=== PATIENT | female | born 1950 | race Caucasian/White ===

== ENCOUNTER → 2021-02-06 | Outpatient (CLI) | payer MEDICARE, OTHER ==
[~2021-02-06] MED LIST: CLARITIN10 MG PO; COQ-10100 MG PO; CYCLOBENZAPRINE10 MG PO; GABAPENTIN400 MG PO; LANTUS100 UNIT/1 SQ; LASIX TAB 20 MG20 MG PO; NAPROXEN250 MG PO; SYNTHROID100 MCG PO; TRAMADOL HCL100 MG PO; ZESTRIL/PRINIVI10 MG PO
== END ==
LOC: KOH-I 14:30
DX: F17.210 Nicotine dependence, cigarettes, uncomplicated (principal); R91.8 Other nonspecific abnormal finding of lung field
CPT/HCPCS: 71271

== ENCOUNTER → 2021-02-13 | Outpatient (CLI) | payer MEDICARE, OTHER | LOC: MAMO 02-10 11:30 | DX: Z12.31 Encounter for screening mammogram for malignant neoplasm of breast (principal) | CPT/HCPCS: 77063; 77067 ==

== ENCOUNTER → 2021-03-27 | Day surgery (SDC) | payer MEDICARE | END | disposition home or self-care (01) | LOC: OR 07:10 | DX: Z12.11 Encounter for screening for malignant neoplasm of colon (principal); E11.9 Type 2 diabetes mellitus without complications; Z20.822 Contact with and (suspected) exposure to COVID-19; I10 Essential (primary) hypertension; F17.210 Nicotine dependence, cigarettes, uncomplicated; M54.9 Dorsalgia, unspecified; G89.29 Other chronic pain; E03.9 Hypothyroidism, unspecified | CPT/HCPCS: 82962; J2001; J2704; J7030 ==